=== PATIENT | female | born 1990 | race Caucasian/White ===

== ENCOUNTER 2024-01-27 15:31 | Emergency (ER) | payer OTHER ==
[~2024-01-27] VITALS: Ht 160 cm; Wt 77.3 kg
[2024-01-27] MEDS ORDERED: PROTONIX TR40 M1 PO (15:55)
[2024-01-27 16:11] LABS: BASO # 0.01 K/mm3 (0.02-0.10); EOS # 0.01 K/mm3 (0.04-0.40); EOS % 0.2 % (1.0-5.0); HEMATOCRIT 38.2 % (37.0-47.0); HEMOGLOBIN 12.7 g/dL (12.5-16.0); LYMPH# 1.07 K/mm3 (1.50-4.00); MEAN CELL VOLUME 89 fl (78-100); MEAN CORPUSCULAR HEMOGLOBIN 30 pg (27-31); MEAN CORPUSCULAR HGB CONC 33 g/dL (33-37); MEAN PLATELET VOLUME 10.1 fl (7.4-10.4); MONO # 0.35 K/mm3 (0.20-0.80); NEU # 4.82 K/mm3 (1.40-6.50); PLATELET COUNT 190 K/mm3 (130-400); RED BLOOD COUNT 4.28 M/mm3 (4.10-5.30); RED CELL DISTRIBUTION WIDTH 11.7 % (11.5-14.5); WHITE BLOOD COUNT 6.3 K/mm3 (4.8-10.8)
[2024-01-27 16:17] LABS: ALBUMIN 4.2 g/dL (3.5-5.0)
[2024-01-27 16:19] LABS: CALCIUM 9.2 mg/dL (8.3-10.5)
[2024-01-27 16:20] LABS: TOTAL PROTEIN 7.4 g/dL (6.4-8.3)
[2024-01-27 16:22] LABS: TOTAL BILIRUBIN 0.4 mg/dL (0.2-1.2)
[2024-01-27 16:26] LABS: URINE APPEARANCE SLIGHTLY CLOUDY (CLEAR); URINE COLOR YELLOW (YELLOW)
[2024-01-27 16:27] LABS: PH-URINE 5.5 (5.0 - 8.0); URINE BILIRUBIN NEGATIVE (NEGATIVE); URINE BLOOD 2+ (NEGATIVE); URINE GLUCOSE NEGATIVE (NEGATIVE); URINE KETONE NEGATIVE (NEGATIVE); URINE LEUKOCYTE ESTERASE 1+ (NEGATIVE); URINE NITRATE NEGATIVE (NEGATIVE); URINE PROTEIN(semi-quant) NEGATIVE (NEGATIVE)
[2024-01-27] MEDS ORDERED: Iohexol 300 - 100 ML VIAL IV ONE (16:46)
[2024-01-27] MEDS ORDERED: Nitrofurantoin (Mono/Macro) 100 MG CAPSULE PO ONE (17:45)
[2024-01-27] MEDS ORDERED: cefTRIAXone 1 G in Water For Injection,Sterile 10 ML IV ONE (18:00)
[2024-01-27] MEDS ORDERED: Ondansetron 4 MG/2 ML VIAL IV ONE (18:15)
[2024-01-27] MEDS ORDERED: CEPHALEXIN500 M1 PO (18:58)
[2024-01-27] MEDS ORDERED: ZOFRAN ODT4 MG PO (18:58)
[2024-01-27] MEDS ORDERED: FLUTICASONE P15.8 ML NS (19:00)
[2024-01-27] MEDS ORDERED: ALLER-TEC10 MG PO (19:00)
[2024-01-27 19:18] VITALS: BP 118/68
== END 2024-01-27 19:19 | disposition home or self-care (01) ==
LOC: ED 15:31
PROVIDERS: Family Medicine
DX: N39.0 Urinary tract infection, site not specified (principal); J06.9 Acute upper respiratory infection, unspecified
CPT/HCPCS: J0696; J2405; J7120; Q9967